=== PATIENT | male | born 1945 | race African-American/Black ===

== ENCOUNTER → 2018-05-06 | Outpatient (CLI) | payer OTHER ==
[~2018-05-06] VITALS: Ht 180.3 cm; Wt 87.1 kg
[~2018-05-06] MED LIST: ASPIR 8181 MG PO; CARDURA4 MG PO; CENTRUM SILVER1 EAC4 PO; CLONIDINE HCL0.1 MG PO; CLONIDINE0.1 TRANSDERM; COLACE100 MG PO; COREG25 MG PO; IPRATROPIU0.2 MG/1 M INH; KEPPRA750 MG PO; KLOR-CON 10 ER10 MEQ PO; LIORESAL 10 MG10 MG PO; LIPITOR40 MG PO; NORVASC10 MG PO; PAXIL10 MG PO; PLAVIX 75 MG TA75 M1 PO; PREPARATION H1 EAC2 TOP; TYLENOL325 MG PO; VITAMIN D-32000 UNIT PO; VOLTAREN GEL 1100 G2 TOP; ZANTAC 150MG T150 MG PO
--- NOTE | ~2018-05-06 | P ---
[facility] [address] [place] [address] PROCEDURE REPORT Name: LOS DUKE Room #: REG [facility]#: [id number] Admission: 05/06/18 Attend Phys: Micah Winter MD Discharge: Date of : 49 Report #: [id number] THIS REPORT FOR: //name// CC: Joan Ibarra MD BRIEF HISTORY: The patient is a 72-year-old male with a previous history of 8 adenomas, for high risk screening colonoscopy. PREOPERATIVE DIAGNOSIS: History of multiple colon adenomas. POSTOPERATIVE DIAGNOSES: 1. Internal hemorrhoids. 2. History of colon polyps. 3. Diffusely dilated colon suggestive of chronic constipation. MEDICATIONS: Deep sedation with propofol per Anesthesia. SPECIMEN: None. ESTIMATED BLOOD LOSS: None. PROCEDURE: Colonoscopy to cecum. FINDINGS: Prior to propofol sedation, procedure of colonoscopy discussed with the patient as well as potential risks and its complications. This was discussed with the patient as well as his who has durable power of employee benefits attorney. She indicates she understands and desire that we proceed. DESCRIPTION OF PROCEDURE: With the patient in left lateral decubitus position, digital examination was completed, which revealed no abnormalities. Subsequently, the Olympus video colonoscope was introduced in the rectum, advanced under direct vision. The patient has a history of a stroke, and his mobility is significantly decreased. There were multiple stools of liquid green material scattered about the colon. We carefully advanced the scope into the proximal colon and the cecum. The cecum was identified by the appendiceal orifice and the ileocecal valve after clean up to the cecum. I attempted to cross the ileocecal valve, but was unsuccessful due to looping of the scope. At that point, the scope was slowly withdrawn and careful circumferential views were obtained. Again, there were significant limitations of prep. However, with extensive irrigation and suctioning, we were able to reduce most of the retained liquidy stool material. Upon slow withdrawal of the scope, we inspected the mucosa. There were some minor limitations, but overall reasonably good views were obtained of most of the colon. The mucosa was within normal limits, normal vascular pattern, normal light reflex. No neoplastic lesions [facility] [address] [place] [address] PROCEDURE REPORT Name: SRIKANTHLOS Rose Mary [id number] Admission: 05/06/18 Attend Phys: Micah Winter MD Discharge: Date of : 49 Report #: [id number] were seen. It was noted that his colon was diffusely dilated and given his immobility, he certainly may have chronic constipation. No obstructing lesions were seen. The scope was withdrawn in the rectum and upon retroflexion, no abnormalities were seen. There were some limitations of the rectum due to liquid stool that could be not aspirated away. As best we could see, no rectal lesions were seen. Scope was withdrawn. The patient tolerated the procedure well. CONDITION OF THE PATIENT UPON DISCHARGE: Following procedure, the patient was drowsy and will be discharged home when fully ambulatory. INSTRUCTIONS TO THE PATIENT AND FAMILY AT THE TIME OF DISCHARGE: The patient with history of 8 adenomas in the past. No adenomas were seen today. The prep was limited, but after clean out, fairly good views were obtained of most of the colon. Given the patient's limitations, it may be difficult to obtain an excellent prep. We will discuss further with his . Due to prep limitations, consider repeating his colonoscopy in about 2 years. However, I would base on his overall health status as time goes forward. By: [id number] Micah Winter MD /nt
== END | disposition home or self-care (01) ==
LOC: GI 06:28 → EDSTATUS 13:22 → GI 13:55
DX: Z12.11 Encounter for screening for malignant neoplasm of colon (principal); Z86.010 Personal history of colon polyps; K64.8 Other hemorrhoids; K59.39 Other megacolon; I10 Essential (primary) hypertension; E78.5 Hyperlipidemia, unspecified; Z95.1 Presence of aortocoronary bypass graft; Z87.891 Personal history of nicotine dependence; Z86.73 Personal history of transient ischemic attack (TIA), and cerebral infarction without residual deficits; Z98.890 Other specified postprocedural states; Z79.899 Other long term (current) drug therapy; Z79.82 Long term (current) use of aspirin